=== PATIENT | male | born 1950 | race Caucasian/White ===

== ENCOUNTER 2022-11-25 17:01 | Emergency (ER) | payer MEDICARE, SELFPAY ==
[2022-11-25 17:15] VITALS: BP 145/79; PULSE 65; RESP 16; TEMP 36.6; O2SAT 99
--- NOTE | 2022-11-25 17:55 | ED.WOUNDLAC ---
HPI - Wound/Laceration General Chief Complaint: Wound/Laceration Stated Complaint: left pinky injury History of Present Illness HPI narrative: Pt is a 72 y/o male, presents to with a near full nail plate avulsion of the left 5th finger, sustained when he slipped while using a wrench, pulling the nail plate up abruptly. Bleeding was minimal per patient. He denies FB risk or blunt injury to the underlying bone, noting he just caught the upper aspect of the nail causing the plate to pull up. He was going to remove the plate at home but family encouraged him to come to . He is uncertain when his last tetanus was received. he is right hand dominant. Related Data Home Medications Medication Instructions Recorded Confirmed hydrochlorothiazide 25 mg tablet mg 11/25/22 losartan 100 mg tablet mg 11/25/22 omeprazole 20 mg capsule,delayed mg 11/25/22 release rosuvastatin 5 mg tablet mg 11/25/22 Allergies Allergy/AdvReac Type Severity Reaction Status Date / Time No Known Allergies Allergy Verified 11/25/22 17:12 Review of Systems Musculoskeletal: Comments: refer to HPI Exam Const: General: cooperative and healthy appearing Nutritional Appearance: average body habitus and well nourished Orientation/consciousness: oriented to person, oriented to place, oriented to time and patient oriented x3 Limitations: no limitations HENMT: Head: normal to inspection, No palpable skull fracture present, normocephalic and atraumatic Ears: external ears normal Face and sinus: normal facial exam Eyes: General: appearance normal, both eyes and all related structures Conjunctivae: conjunctivae normal Neck: Neck: normal visual inspection, full ROM and no lymphadenopathy Resp: Effort & Inspection: normal respiratory effort Auscultation: clear to auscultation bilaterally Cardio: Rate: regular rate Rhythm: regular rhythm Skin: Nails: other (left 5th finger nail plate is avulsed) Other: the radial side of the left 5th finger nail plate is intact at the cuticle. No active bleeding. Normal ROM at the DIP/PIP/MCP joint. No deformity or volar aspect ecchymosis Course Course Emergency Course: nail plate is removed as it is nearly avulsed in completion at arrival. Nail bed does not have a laceration present. Pt declines imaging as he does not feel he fractured the digit. Tdap booster provided. Level of Care: Express Care Visit (14150) Vital Signs Vital signs: Vital Signs Temperature 36.6 C 11/25/22 17:15 Pulse Rate 65 11/25/22 17:15 Respiratory Rate 16 11/25/22 17:15 Blood Pressure 145/79 H 11/25/22 17:15 Pulse Oximetry 99 11/25/22 17:15 Oxygen Delivery Room Air 11/25/22 17:15 Temperature 36.6 C 11/25/22 17:15 Pulse Rate 65 11/25/22 17:15 Respiratory Rate 16 11/25/22 17:15 Blood Pressure 145/79 H 11/25/22 17:15 Pulse Oximetry 99 11/25/22 17:15 Oxygen Delivery Room Air 11/25/22 17:15 Procedures Other Procedure Procedure 1: Other Procedure: nail plate removal, left 5th digit. Digit was soaked in surecleanse by nursing staff prior to procedure. Wound is prepared with sterile technique, betadine to base of the digit prior to digital block. Digital block was completed, using wing technique, aspiration, needle bevel turn, aspiration and incremental infiltration with adequate anesthesia present. The nail ann was removed easily by trimming the remaining cuticle along the radial side of the nail plate, lifting and removing the plate intact. There is no laceration of the nail bed. BRITTANI, telpha, finger splint and coban applied. Pt tolerated well MDM - Wound/Laceration MDM Narrative Medical decision making narrative: nail plate removed, splint applied, home wound care instructions provided, Tdap booster given Differential Diagnosis Differential diagnosis: Likely laceration, avulsion of skin and other (nail avulsion) Discharge Plan Discharge Clinical Impression: Avul
[2022-11-25] MEDS: TETANUS,DIPHTHERIA,AC PERTUSSIS ADULT (0.5 ML) BOOSTRIX IM (18:10)
== END 2022-11-25 18:18 | disposition home or self-care (01) ==
PROVIDERS: Emergency Provider Nurse Practitioner Family; PCP Internal Medicine Geriatric Medicine
DX: S61.307A Unspecified open wound of left little finger with damage to nail, initial encounter (principal); W27.8XXA Contact with other nonpowered hand tool, initial encounter; Z23 Encounter for immunization
CPT/HCPCS: 11730; 90471; 90715; 99212; G0463